=== PATIENT | male | born 1960 ===

== ENCOUNTER 2018-11-08 07:30 | Day surgery (SDC) | payer BC ==
[2018-11-07 12:02] VITALS: BMI 29.0
[2018-11-08 08:24] VITALS: TEMP 97.1
[2018-11-08] MEDS ORDERED: Lactated Ringer's 500 ML IV SCH (09:45)
[2018-11-08] MEDS ORDERED: Propofol 10 mg/ml Inj (20 ML) ONE (09:53)
[2018-11-08] MEDS ORDERED: Lidocaine Hydrochloride 5 ML INJ ONE (09:54)
[2018-11-08 10:50] VITALS: PULSE 61; RESP 16; O2SAT 98
[2018-11-08 11:16] VITALS: BP 113/69
== END 2018-11-08 11:26 | disposition home or self-care (01) ==
LOC: C.ENDO 07:30
PROVIDERS: ATTEND Internal Medicine Gastroenterology
DX: Z12.11 Encounter for screening for malignant neoplasm of colon (principal); D12.2 Benign neoplasm of ascending colon; D12.4 Benign neoplasm of descending colon; D12.3 Benign neoplasm of transverse colon; K63.5 Polyp of colon; K64.1 Second degree hemorrhoids; I10 Essential (primary) hypertension; E55.9 Vitamin D deficiency, unspecified; G30.9 Alzheimer's disease, unspecified; F02.80 Dementia in other diseases classified elsewhere, unspecified severity, without behavioral disturbance, psychotic disturbance, mood disturbance, and anxiety
CPT/HCPCS: 45380; 45385; 88305; J2704; J3010; J7120